=== PATIENT | female | born 1980 ===

== ENCOUNTER 2019-03-08 08:15 | Emergency (ER) | payer OTHER ==
[~2019-03-08] VITALS: Ht 157.5 cm; Wt 81.6 kg
== END 2019-03-08 12:39 | disposition home or self-care (01) ==
LOC: ER 08:15
DX: O26.891 Other specified pregnancy related conditions, first trimester (principal); R51 Headache; J32.0 Chronic maxillary sinusitis; Z34.81 Encounter for supervision of other normal pregnancy, first trimester